=== PATIENT | male | born 1995 | race Caucasian/White ===

== ENCOUNTER 2019-12-15 16:29 | Emergency (ER) | payer SELFPAY ==
[~2019-12-15] VITALS: Ht 182.9 cm; Wt 81.6 kg
--- NOTE | 2019-12-15 16:30 | NUR ---
ED Nurse Note: PER EMS, POSSIBLE FENTANYL OD PER PT AND 8MG NARCAN IVP WAS GIVEN BY EMS.
--- NOTE | 2019-12-15 16:33 | Emergency Room Report ---
History of Present Illness General Chief Complaint: Overdose Source: EMS Present Illness HPI 24-year-old male history of opioid abuse presents the ED after smoking fentanyl , just prior to arrival patient was somnolent requiring Narcan had pinpoint pupils woke up from the Narcan patient then fell back asleep severity is mild, constant patient presents for evaluation Allergies: Coded Allergies: UNABLE TO ASSESS (Unverified , 12/15/19) COVID-19 Screening Contact w/high risk pt: No Recent Travel to affected area: No Experienced COVID-19 symptoms?: No Patient History Limited by: medical condition - Sleeping Past Medical History: see triage record Social History: Reports: drug use - Fentanyl Reviewed Nursing Documentation: PMH: Agreed; PSxH: Agreed Nursing Documentation-PMH Past Medical History: No Stated History Review of Systems All Other Systems: limited - Fentanyl abuse currently sleeping Physical Exam Vital Signs Date Time Temp Pulse Resp B/P (MAP) Pulse Ox O2 Delivery O2 Flow Rate FiO2 12/15/19 16:26 98.4 104 14 122/76 (91) 97 Room Air Sp02 EP Interpretation: reviewed, normal General Appearance: other - Sleeping Head: normocephalic, atraumatic Eyes: bilateral eye PERRL, bilateral eye EOMI, bilateral eye other - Pinpoint pupils ENT: uvula midline, moist mucus membranes Neck: supple, thyroid normal, supple/symm/no masses Respiratory: lungs clear, no respiratory distress, no retraction, no accessory muscle use Cardiovascular #1: normal peripheral pulses, regular rate, rhythm, no edema, no gallop, no murmur Gastrointestinal: non tender, soft, no guarding, no rebound Musculoskeletal: normal inspection Neurologic: oriented x3, responsive Skin: no rash, warm/dry Medical Decision Making Diagnostic Impression: Primary Impression: Drug overdose Qualified Codes: T50.901A - Poisoning by unspecified drugs, medicaments and biological substances, accidental (unintentional), initial encounter ER Course 24-year-old male presents with fentanyl overdose, patient inspecting his airway , patient responded to naloxone will continue to observe patient until he kristian Patient is sleeping comfortably in bed Chest x-ray is negative, CT brain is negative patient is only responding to stimuli Disposition Home with return precautions naloxone prescription was provided Chest X-Ray Diagnostic Results Chest X-Ray Diagnostic Results : Chest X-Ray Ordered: Yes # of Views/Limited/Complete: 1 View Indication: Other - Cough EP Interpretation: Yes - Cough Interpretation: no consolidation, no effusion, no pneumothorax, no acute cardiopulmonary disease Impression: No acute disease Electronically Signed by: Gerald Arita MD CT/MRI/US Diagnostic Results CT/MRI/US Diagnostic Results : Impression Procedure: CT Head no Contrast EXAM: CT Head Without Intravenous Contrast CLINICAL HISTORY: FALL TECHNIQUE: Axial computed tomography images of the head/brain without intravenous contrast. CTDI is 53.4 mGy and DLP is 1179.1 mGy-cm. One or more of the following dose reduction techniques were used: automated exposure control, adjustment of the mA and/or kV according to patient size, use of iterative reconstruction technique. COMPARISON: None FINDINGS: Brain: No acute infarct or hemorrhage. No extra-axial fluid collection. No mass effect or midline shift. Ventricles and sulci: Normal. No ventriculomegaly or intraventricular hemorrhage. Bones: Normal. No bony lesion or fracture. Subcutaneous tissues: Normal. Sinuses: Small polyp versus mucous retention cyst in the left maxillary sinus. Mastoid air cells: Normal. Orbits: Grossly unremarkable. IMPRESSION: No acute intracranial abnormality. Dictated By: Jose Pollock MD Electronically Signed By: Jose Pollock MD Signed Date/Time 12/15/19 1702 CC: Gerald Arita MD Last Vital Signs Date Time Temp Pulse Resp B/P (MAP) Pulse Ox O2 Delivery O2 Flow Rate FiO2 12/15/19 16:26 98.4 104 14 122/76 (91) 97 Room Air Disposition: HOME, SELF-CARE Condition: Stable Scripts Naloxone HCl (Narcan) 4 Mg [place] 4 MG NS ONCE PRN for opioid overdose, #1 SPRAY Prov: Gerald Arita MD 12/15/19 [facility] Harjit Webb [facility] Patient Instructions: Drug Overdose, Narcotic Overdose, Opioid Use Disorder Additional Instructions: The patient was provided with discharge instructions, notified to follow-up with a primary care doctor and or specialist in the next 24-48 hours, and to return to the ED if they have worsening of their symptoms. Please note that this report is being documented using [employer] technology. This can lead to erroneous entry secondary to incorrect interpretation by the dictating instrument. Gerald Arita MD Dec 15, 2019 16:33
[2019-12-15] MEDS ORDERED: NARCAN4 MG NS (16:34)
[2019-12-15 16:36] VITALS: BP 122/76
--- NOTE | 2019-12-15 16:39 | NUR ---
ED Nurse Note: pt brought in by ambulance from street due to possible Fentanly overdose. pt non verbal and in deep sleep and responds to painful stimuli only. unable to assess language skill, SI thought, or other assessment which require verbal answer. no cardiac or pulmonary distress noted at this time. pt is in high bay position to prevent possible asipriation.
--- NOTE | 2019-12-15 16:41 | NUR ---
ED Nurse Note: x-ray at bedside.
--- NOTE | 2019-12-15 16:47 | Diagnostic Imaging Report ---
Indication: Cough Technique: XRAY Chest 1v Comparison: None Findings: Heart size and mediastinal contours are within normal limits for AP technique. There is no focal airspace consolidation, pneumothorax or pleural effusion. Osseous structures demonstrate no acute abnormality. Impression: No radiographic evidence of acute cardiopulmonary disease.
--- NOTE | 2019-12-15 17:03 | Diagnostic Imaging Report ---
EXAM: CT Head Without Intravenous Contrast CLINICAL HISTORY: FALL TECHNIQUE: Axial computed tomography images of the head/brain without intravenous contrast. CTDI is 53.4 mGy and DLP is 1179.1 mGy-cm. One or more of the following dose reduction techniques were used: automated exposure control, adjustment of the mA and/or kV according to patient size, use of iterative reconstruction technique. COMPARISON: None FINDINGS: Brain: No acute infarct or hemorrhage. No extra-axial fluid collection. No mass effect or midline shift. Ventricles and sulci: Normal. No ventriculomegaly or intraventricular hemorrhage. Bones: Normal. No bony lesion or fracture. Subcutaneous tissues: Normal. Sinuses: Small polyp versus mucous retention cyst in the left maxillary sinus. Mastoid air cells: Normal. Orbits: Grossly unremarkable. IMPRESSION: No acute intracranial abnormality.
--- NOTE | 2019-12-15 18:16 | NUR ---
ED Nurse Note: attempted to wake pt up with ammonia inhaler by ERMD at bedside and not effective. pt moved to bed 6.
[2019-12-15 18:36] VITALS: BP 131/79
--- NOTE | 2019-12-15 19:08 | NUR ---
HAND-OFF: Report given to ELIAN Ordoñez. no orders to carry at this time.
[2019-12-15 19:10] VITALS: BP 128/80
--- NOTE | 2019-12-15 19:10 | NUR ---
ED Nurse Note: Report received from Mike Garcia RN. Pt is sleeping at this time, ERMD aware. No acute distress noted. Breathing is normal and unlabored. Will continue to monitor pt.
--- NOTE | 2019-12-15 20:20 | NUR ---
ED Nurse Note: ERMD bedside. ERMD attempted to arouse pt, pt is still sleeping at this time. VSS. No acute distress noted.
[2019-12-15 21:40] VITALS: BP 120/73
--- NOTE | 2019-12-15 21:40 | NUR ---
ED Nurse Note: Pt is arousable to light touch at this time. Pt is able to now answer questions. He is aaox3, pt does not remember how he ended up in the ED. Pt states he did use drugs. No cardiac or respiratory distress noted. ERMD bedside. Will continue to monitor.
--- NOTE | 2019-12-15 23:00 | NUR ---
ED Nurse Note: Pt is awake and alert x4. Pt is requesting to leave at this time. Pt is able to ambulate with steady gait to restroom. No acute distress noted.
[2019-12-15 23:30] VITALS: BP 138/82
--- NOTE | 2019-12-15 23:30 | NUR ---
ER DISCHARGE NOTE: Patient is cleared to be discharged per ERMD, pt is aox4, on room air, with stable vital signs. pt was given dc and prescription instructions, pt was able to verbalize understanding, pt id band and iv site removed without complications. pt is able to ambulate with steady gait. pt took all belongings.
== END 2019-12-15 23:30 | disposition home or self-care (01) ==
LOC: EDBD 16:29 → EMR 16:55
DX: T40.4X1A Poisoning by other synthetic narcotics, accidental (unintentional), initial encounter (principal); R40.0 Somnolence; R05 Cough
CPT/HCPCS: 70450; 71045; 82962; 96360; 99284